=== PATIENT | female | born 1950 | race Caucasian/White ===

== ENCOUNTER 2022-03-11 21:58 | Inpatient (IN) ==
[2022-03-11] MEDS ORDERED: 0.9 % Sodium Chloride 1,000 ML IVC ONE (22:54)
[2022-03-11] MEDS ORDERED: Acetaminophen 325 MG TABLET PO ONE (22:54)
[2022-03-11] MEDS ORDERED: Iopamidol - 370 500 ML MLS IVP ONE (22:57)
[2022-03-11 23:11] LABS: VBG HCO3 19 mEq/L (21-27); VBG PCO2 27 mmHg (41-51); VBG PH 7.45 pH Units (7.32-7.42); VBG PO2 93 mmHg (25-50)
[2022-03-11 23:14] LABS: Hematocrit 39.1 % (35.3-44.9); Hemoglobin 13.4 g/dL (11.5-15.4); Mean Corpuscular HGB Conc 34.3 g/dL (31.6-35.5); Mean Corpuscular Hemoglobin 29.3 pg (28.0-33.3); Mean Corpuscular Volume 85.6 fL (83.0-100.0); Mean Platelet Volume 10.3 fL (9.4-12.4); Platelet Count 145 K/mcL (140-400); Red Blood Count 4.57 M/mcL (3.82-4.97); Red Cell Distribution Width 13.5 % (11.5-14.5); White Blood Count 20.1 K/mcL (4.3-11.1)
[2022-03-11 23:24] LABS: INR 1.3; Prothrombin Time 14.3 Seconds (9.4-12.1)
[2022-03-11 23:37] LABS: Albumin 3.4 g/dL (3.5-5.7); Bilirubin,Direct 0.4 mg/dL (0.0-0.2); Bilirubin,Indirect 0.7 mg/dL (0.0-1.0); Bilirubin,Total 1.1 mg/dL (0.3-1.0); Calcium 9.3 mg/dL (8.6-10.3); Globulin 3.5 g/dL (2.4-3.5); Potassium 3.4 mEq/L (3.5-5.1); Total Protein 6.9 g/dL (6.4-8.9)
[2022-03-11 23:43] LABS: Lymphocytes # 2.4 K/mcL (0.6-4.6); Monocytes # 1.6 K/mcL (0.0-1.3); Neutrophils # 16.1 K/mcL (1.6-8.9); Platelet Estimate Normal (Normal)
[2022-03-11 23:56] LABS: Troponin I 0.1 ng/mL (< 0.04)
[2022-03-12] MEDS ORDERED: Aspirin 325 MG TABLET PO ONE (00:11)
[2022-03-12 00:19] LABS: Bacteria,Urine Few per hpf (None-Few); Bilirubin,Urine Negative (Negative); Blood,Urine Large (Negative); Clarity,Urine Ex.Turbid (Clear); Color,Urine Light-Orange (Yellow); Glucose,Urine (UA) 150 mg/dL (Normal); Ketones,Urine 10 mg/dL (Negative); Leukocyte Esterase,Urine Negative (Negative); Mucus,Urine Few per lpf (None-Few); Nitrite,Urine Negative (Negative); Protein,Urine >=300 mg/dL (Neg-Trace); Specific Gravity,Urine 1.021 (1.010-1.025); Squamous Epithelial Cell,Urine Few per hpf (None-Few)
[2022-03-12 00:21] LABS: Adenovirus Not Detected (Not Detect); Bordetella Pertussis Not Detected (Not Detect); Chlamydophila pneumoniae Not Detected (Not Detect); Coronavirus 229E Not Detected (Not Detect); Coronavirus HKU1 Not Detected (Not Detect); Coronavirus NL63 Not Detected (Not Detect); Coronavirus OC43 Not Detected (Not Detect); Human Metapneumovirus Not Detected (Not Detect); Human Rhinovirus/Enterovirus Not Detected (Not Detect); Influenza A Subtype 2009 H1 Not Detected (Not Detect); Influenza B Not Detected (Not Detect); Mycoplasma pneumoniae Not Detected (Not Detect); Parainfluenza Virus 1 Not Detected (Not Detect); Parainfluenza Virus 2 Not Detected (Not Detect); Parainfluenza Virus 3 Not Detected (Not Detect); Parainfluenza Virus 4 Not Detected (Not Detect); Respiratory Syncytial Virus Not Detected (Not Detect); SARS-CoV-2 Not Detected (Not Detect)
[2022-03-12] MEDS ORDERED: cefTRIAXone 2,000 MG in 0.9 % Sodium Chloride Mini Bag 100 ML IVPB ONE (01:06)
[2022-03-12] MEDS ORDERED: 0.9 % Sodium Chloride 1,000 ML IV ONE (01:07)
[2022-03-12] MEDS ORDERED: Naloxone 0.4 MG/ML INJ IVP PRN ×2 (03:41→10:28)
[2022-03-12] MEDS ORDERED: Ondansetron 4 MG/2 ML VIAL IVP PRN (03:41)
[2022-03-12 05:50] LABS: Hematocrit 35.9 % (35.3-44.9); Hemoglobin 12.2 g/dL (11.5-15.4); Mean Corpuscular Hemoglobin 29.5 pg (28.0-33.3); Mean Corpuscular Volume 86.9 fL (83.0-100.0); Mean Platelet Volume 10.2 fL (9.4-12.4); Platelet Count 146 K/mcL (140-400); Red Blood Count 4.13 M/mcL (3.82-4.97); Red Cell Distribution Width 13.7 % (11.5-14.5); White Blood Count 20.1 K/mcL (4.3-11.1)
[2022-03-12 05:57] LABS: INR 1.2; Prothrombin Time 13.7 Seconds (9.4-12.1)
[2022-03-12] MEDS ORDERED: Dextrose Gel 15 GM/37.5 ML TUBE PO PRN ×2 (06:07)
[2022-03-12] MEDS ORDERED: D5% in Water 1,000 ML IVC PRN (06:07)
[2022-03-12] MEDS ORDERED: *HR* Dextrose 50 % in Water (Syg) 50 ML SYRINGE IVP PRN (06:07)
[2022-03-12 06:14] LABS: Alanine Aminotransferase 57 Units/L (7-52); Albumin 3.1 g/dL (3.5-5.7); Alkaline Phosphatase 91 Units/L (34-104); Aspartate Amino Transferase 199 Units/L (13-39); BUN/Creatinine Ratio 19 (6-26); Bilirubin,Direct 0.3 mg/dL (0.0-0.2); Bilirubin,Indirect 0.5 mg/dL (0.0-1.0); Bilirubin,Total 0.8 mg/dL (0.3-1.0); Blood Urea Nitrogen 34 mg/dL (8-23); Calcium 8.3 mg/dL (8.6-10.3); Carbon Dioxide 21 mEq/L (23-29); Chloride 103 mEq/L (98-107); Glucose 265 mg/dL (70-105); Lymphocytes # 0.8 K/mcL (0.6-4.6); Magnesium 1.5 mg/dL (1.6-2.6); Monocytes # 0.8 K/mcL (0.0-1.3); Neutrophils # 18.5 K/mcL (1.6-8.9); Osmolality,Calculated 295 (280-300); Platelet Estimate Normal (Normal); Potassium 3.5 mEq/L (3.5-5.1); Sodium 134 mEq/L (136-145); Total Protein 6.1 g/dL (6.4-8.9); eGFR For African Americans 33 (> 60); eGFR For Non-African Americans 27 (> 60)
[2022-03-12] MEDS ORDERED: 0.9 % Sodium Chloride 1,000 ML IVC SCH (06:15)
[2022-03-12 06:29] LABS: Thyroid Stimulating Hormone 1.648 mcIU/mL (0.340-5.600)
[2022-03-12] MEDS ORDERED: Magnesium Sulfate 1 GM/102 ML PIGGYBACK IVPB ONE (06:30)
[2022-03-12 06:34] LABS: Creatine Kinase > 20000 Units/L (30-223)
[2022-03-12] MEDS ORDERED: Piperacillin/Tazobactam 3.375 GM in 0.9 % Sodium Chloride Mini Bag 100 ML IVPB SCH (08:00)
[2022-03-12 08:10] LABS: Estimated Average Glucose 180 mg/dl; Hemoglobin A1C 7.9 %
[2022-03-12] MEDS: 0.9 % Sodium Chloride 1,000 ML IVC SCH ×4 (08:45→23:19)
[2022-03-12] MEDS: Insulin LISPRO 300 UNITS/3 ML VIAL SUBQ SCH ×3 (09:30→16:24)
[2022-03-12] MEDS: *HR* HYDROcodone/Acet 5/325 mg TABLET PO PRN ×2 (10:45→22:26)
[2022-03-12 12:01] LABS: Enterococcus faecalis by PCR Not Detected (Not Detect); Enterococcus faecium by PCR Not Detected (Not Detect); Staph epidermidis by PCR Not Detected (Not Detect); Staph lugdunensis by PCR Not Detected (Not Detect); Staphylococcus aureus by PCR DETECTED (Not Detect); Streptococcus by PCR Not Detected (Not Detect); mecA/C & MREJ (MRSA) Gene Not Detected (Not Detect)
[2022-03-12 12:02] LABS: A.calcoaceticus-baumannii cplx Not Detected (Not Detect); Bacteroides fragilis by PCR Not Detected (Not Detect); Candida albicans by PCR Not Detected (Not Detect); Candida auris by PCR Not Detected (Not Detect); Candida glabrata by PCR Not Detected (Not Detect); Candida krusei by PCR Not Detected (Not Detect); Candida parapsilosis by PCR Not Detected (Not Detect); Candida tropicalis by PCR Not Detected (Not Detect); Crypto. neoformans/gattii PCR Not Detected (Not Detect); Enterobacter cloacae Cmplx PCR Not Detected (Not Detect); Enterobacterales by PCR Not Detected (Not Detect); Escherichia coli by PCR Not Detected (Not Detect); Klebs. pneumoniae group by PCR Not Detected (Not Detect); Klebsiella aerogenes by PCR Not Detected (Not Detect); Klebsiella oxytoca by PCR Not Detected (Not Detect); Proteus by PCR Not Detected (Not Detect); Pseudomonas aeruginosa by PCR Not Detected (Not Detect); Salmonella species by PCR Not Detected (Not Detect); Serratia marcescens by PCR Not Detected (Not Detect); Stenotrophomonas maltophilia Not Detected (Not Detect); Streptococcus agalactiae(B)PCR Not Detected (Not Detect); Streptococcus pneumoniae PCR Not Detected (Not Detect); Streptococcus pyogenes (A) PCR Not Detected (Not Detect)
[2022-03-12 12:04] LABS: Calcium 8.3 mg/dL (8.6-10.3); Potassium 3.9 mEq/L (3.5-5.1); Troponin I 0.09 ng/mL (< 0.04)
[2022-03-12] MEDS ORDERED: Perflutren Lipid Microsphere 1.3 ML in 0.9 % Sodium Chloride 8.7 ML IVP PRN (13:51)
[2022-03-12] MEDS ORDERED: Vancomycin 1,750 MG in 0.9 % Sodium Chloride 250 ML IVPB SCH (14:00)
[2022-03-12] MEDS: *HR* OxyCODONE Immed Rel 5 MG TABLET PO PRN (14:48)
[2022-03-12] MEDS ORDERED: Vancomycin 1,750 MG/517.5 ML IV.SOLN IVPB ONE (15:00)
[2022-03-13] MEDS: *HR* OxyCODONE Immed Rel 5 MG TABLET PO PRN ×2 (01:43→22:36)
[2022-03-13] MEDS: CeFAZolin 2,000 MG/120 ML BAG IVPB SCH ×4 (02:25→15:39)
[2022-03-13] MEDS: 0.9 % Sodium Chloride 1,000 ML IVC SCH ×3 (04:12→20:00)
[2022-03-13] MEDS: *HR* HYDROcodone/Acet 5/325 mg TABLET PO PRN ×2 (05:19→15:36)
[2022-03-13] MEDS ORDERED: *HR* HYDROmorphone (PF) 1 MG/ML SYRINGE IVP ONE (05:38)
[2022-03-13 06:34] LABS: Hematocrit 35.7 % (35.3-44.9); Hemoglobin 11.8 g/dL (11.5-15.4); Mean Corpuscular HGB Conc 33.1 g/dL (31.6-35.5); Mean Corpuscular Hemoglobin 29.1 pg (28.0-33.3); Mean Corpuscular Volume 88.1 fL (83.0-100.0); Mean Platelet Volume 9.9 fL (9.4-12.4); Platelet Count 143 K/mcL (140-400); Red Blood Count 4.05 M/mcL (3.82-4.97); Red Cell Distribution Width 13.9 % (11.5-14.5); White Blood Count 14.9 K/mcL (4.3-11.1)
[2022-03-13 07:55] LABS: Lymphocytes # 1.2 K/mcL (0.6-4.6); Monocytes # 0.8 K/mcL (0.0-1.3); Platelet Estimate Normal (Normal)
[2022-03-13] MEDS: Insulin LISPRO 300 UNITS/3 ML VIAL SUBQ SCH ×3 (08:13→16:51)
[2022-03-13 09:31] LABS: Alanine Aminotransferase 67 Units/L (7-52); Alkaline Phosphatase 98 Units/L (34-104); Aspartate Amino Transferase 133 Units/L (13-39); BUN/Creatinine Ratio 20 (6-26); Bilirubin,Total 0.8 mg/dL (0.3-1.0); Blood Urea Nitrogen 41 mg/dL (8-23); C-Reactive Protein > 300 mg/L (Less than 10); Calcium 8.2 mg/dL (8.6-10.3); Carbon Dioxide 18 mEq/L (23-29); Chloride 104 mEq/L (98-107); Creatine Kinase 5220 Units/L (30-223); Globulin 3.1 g/dL (2.4-3.5); Glucose 215 mg/dL (70-105); Osmolality,Calculated 289 (280-300); Potassium 3.8 mEq/L (3.5-5.1); Sodium 131 mEq/L (136-145); Total Protein 6.1 g/dL (6.4-8.9); eGFR For African Americans 29 (> 60); eGFR For Non-African Americans 24 (> 60)
[2022-03-13] MEDS: Aspirin Enteric Coated 81 MG Tablet PO SCH (15:29)
[2022-03-13] MEDS: amLODIPine 5 MG TABLET PO SCH (15:29)
[2022-03-13] MEDS: Latanoprost 2.5 ML BOTTLE BOTH EYES SCH (19:56)
[2022-03-14] MEDS: 0.9 % Sodium Chloride 1,000 ML IVC SCH ×4 (00:34→19:45)
[2022-03-14] MEDS: *HR* HYDROcodone/Acet 5/325 mg TABLET PO PRN ×4 (01:01→23:32)
[2022-03-14 02:51] LABS: Basophils # 0.1 K/mcL (0.0-0.2); Basophils % 0.5 %; Eosinophils # 0.1 K/mcL (0.0-0.6); Eosinophils % 0.7 %; Hemoglobin 11.3 g/dL (11.5-15.4); Immature Granulocytes % 2.5 % (0-4); Lymphocytes # 1.8 K/mcL (0.6-4.6); Lymphocytes % 13.2 %; Mean Corpuscular HGB Conc 33.2 g/dL (31.6-35.5); Mean Corpuscular Hemoglobin 29.4 pg (28.0-33.3); Mean Corpuscular Volume 88.3 fL (83.0-100.0); Mean Platelet Volume 10.2 fL (9.4-12.4); Monocytes # 1.3 K/mcL (0.0-1.3); Monocytes % 9.6 %; Neutrophils # 10.2 K/mcL (1.6-8.9); Nucleated Red Blood Cells 0.1 /100 WBC (0); Platelet Count 164 K/mcL (140-400); Red Blood Count 3.85 M/mcL (3.82-4.97); Red Cell Distribution Width 14.1 % (11.5-14.5); Segmented Neutrophils % 73.5 %; White Blood Count 13.9 K/mcL (4.3-11.1)
[2022-03-14 03:14] LABS: Albumin 2.9 g/dL (3.5-5.7); Albumin/Globulin Ratio 0.9 (1.1-2.2); Bilirubin,Total 0.7 mg/dL (0.3-1.0); Calcium 8.5 mg/dL (8.6-10.3); Globulin 3.4 g/dL (2.4-3.5); Potassium 3.9 mEq/L (3.5-5.1); Total Protein 6.3 g/dL (6.4-8.9)
[2022-03-14] MEDS: CeFAZolin 2,000 MG/120 ML BAG IVPB SCH ×2 (04:33→17:17)
[2022-03-14] MEDS: Insulin LISPRO 300 UNITS/3 ML VIAL SUBQ SCH ×3 (07:57→17:10)
[2022-03-14] MEDS: amLODIPine 5 MG TABLET PO SCH (07:59)
[2022-03-14] MEDS: Aspirin Enteric Coated 81 MG Tablet PO SCH (07:59)
[2022-03-14] MEDS: *HR* OxyCODONE Immed Rel 5 MG TABLET PO PRN (19:45)
[2022-03-14] MEDS: Latanoprost 2.5 ML BOTTLE BOTH EYES SCH (19:45)
[2022-03-15] MEDS: *HR* OxyCODONE Immed Rel 5 MG TABLET PO PRN ×3 (01:47→20:12)
[2022-03-15] MEDS: Acetaminophen 325 MG TABLET PO PRN ×2 (01:47→20:12)
[2022-03-15 03:08] LABS: Eosinophils # 0.3 K/mcL (0.0-0.6); Hematocrit 36.1 % (35.3-44.9); Mean Corpuscular HGB Conc 33.2 g/dL (31.6-35.5); Mean Corpuscular Hemoglobin 29.1 pg (28.0-33.3); Mean Corpuscular Volume 87.4 fL (83.0-100.0); Platelet Count 196 K/mcL (140-400); Red Blood Count 4.13 M/mcL (3.82-4.97); White Blood Count 12.5 K/mcL (4.3-11.1)
[2022-03-15 03:22] LABS: Albumin 2.8 g/dL (3.5-5.7); Albumin/Globulin Ratio 0.9 (1.1-2.2); Bilirubin,Total 0.5 mg/dL (0.3-1.0); Calcium 8.6 mg/dL (8.6-10.3); Globulin 3.2 g/dL (2.4-3.5); Potassium 3.7 mEq/L (3.5-5.1)
[2022-03-15 03:36] LABS: Lymphocytes # 2.5 K/mcL (0.6-4.6); Monocytes # 0.3 K/mcL (0.0-1.3); Neutrophils # 9.5 K/mcL (1.6-8.9); Platelet Estimate Normal (Normal); Toxic Granulation Present (Not Present)
[2022-03-15] MEDS: CeFAZolin 2,000 MG/120 ML BAG IVPB SCH ×2 (03:38→17:18)
[2022-03-15] MEDS: 0.9 % Sodium Chloride 1,000 ML IVC SCH ×2 (03:38→12:53)
[2022-03-15] MEDS: *HR* HYDROcodone/Acet 5/325 mg TABLET PO PRN ×2 (05:54→22:23)
[2022-03-15] MEDS: amLODIPine 5 MG TABLET PO SCH ×2 (08:37→12:40)
[2022-03-15] MEDS: Insulin LISPRO 300 UNITS/3 ML VIAL SUBQ SCH ×3 (08:37→17:11)
[2022-03-15] MEDS: Aspirin Enteric Coated 81 MG Tablet PO SCH (08:37)
[2022-03-15] MEDS: lisinopriL 20 MG TABLET PO SCH (12:40)
[2022-03-15] MEDS: hydroCHLOROthiazide 25 MG TABLET PO SCH (12:40)
[2022-03-15] MEDS: carvediloL 6.25 MG TABLET PO SCH (17:18)
[2022-03-15] MEDS: Latanoprost 2.5 ML BOTTLE BOTH EYES SCH (20:12)
[2022-03-15 22:24] LABS: Amphetamine Screen,Urine Negative ng/mL (Cutoff=1000); Barbiturate Screen,Urine Negative ng/mL (Cutoff=200); Benzodiazepines Screen,Urine Negative ng/mL (Cutoff=200); Cannabinoid Screen,Urine Negative ng/mL (Cutoff = 50); Cocaine Screen,Urine Negative ng/mL (Cutoff= 300); Opiate Screen,Urine Positive ng/mL (Cutoff=300); Phencyclidine Screen,Urine Negative ng/mL (Cutoff=25)
[2022-03-15] MEDS: Levalbuterol Neb 1.25 MG/3 ML IH SCH (22:35)
[2022-03-16] MEDS: 0.9 % Sodium Chloride 1,000 ML IVC SCH ×2 (00:16→13:33)
[2022-03-16] MEDS: *HR* OxyCODONE Immed Rel 5 MG TABLET PO PRN ×4 (02:30→23:10)
[2022-03-16 02:37] LABS: Eosinophils # 0.3 K/mcL (0.0-0.6); Hematocrit 34.7 % (35.3-44.9); Hemoglobin 11.5 g/dL (11.5-15.4); Mean Corpuscular HGB Conc 33.1 g/dL (31.6-35.5); Mean Corpuscular Hemoglobin 29.1 pg (28.0-33.3); Mean Corpuscular Volume 87.8 fL (83.0-100.0); Mean Platelet Volume 9.8 fL (9.4-12.4); Platelet Count 208 K/mcL (140-400); Red Blood Count 3.95 M/mcL (3.82-4.97); Red Cell Distribution Width 14.2 % (11.5-14.5)
[2022-03-16 02:55] LABS: Albumin 2.6 g/dL (3.5-5.7); Albumin/Globulin Ratio 0.9 (1.1-2.2); Bilirubin,Total 0.5 mg/dL (0.3-1.0); Calcium 8.8 mg/dL (8.6-10.3); Potassium 3.5 mEq/L (3.5-5.1); Total Protein 5.6 g/dL (6.4-8.9)
[2022-03-16 03:06] LABS: Lymphocytes # 2.4 K/mcL (0.6-4.6); Monocytes # 1.5 K/mcL (0.0-1.3); Neutrophils # 9.9 K/mcL (1.6-8.9); Platelet Estimate Normal (Normal); Toxic Granulation Present (Not Present)
[2022-03-16] MEDS: Levalbuterol Neb 1.25 MG/3 ML IH SCH ×2 (04:00→11:09)
[2022-03-16] MEDS: CeFAZolin 2,000 MG/120 ML BAG IVPB SCH ×2 (04:55→16:49)
[2022-03-16] MEDS: Acetaminophen 325 MG TABLET PO PRN (04:56)
[2022-03-16] MEDS: *HR* HYDROcodone/Acet 5/325 mg TABLET PO PRN ×2 (04:56→13:31)
[2022-03-16] MEDS: carvediloL 6.25 MG TABLET PO SCH ×2 (07:33→16:51)
[2022-03-16] MEDS: amLODIPine 5 MG TABLET PO SCH (07:33)
[2022-03-16] MEDS: Aspirin Enteric Coated 81 MG Tablet PO SCH (07:33)
[2022-03-16] MEDS: lisinopriL 20 MG TABLET PO SCH (07:34)
[2022-03-16] MEDS: hydroCHLOROthiazide 25 MG TABLET PO SCH (07:34)
[2022-03-16] MEDS: Insulin LISPRO 300 UNITS/3 ML VIAL SUBQ SCH ×3 (07:35→16:51)
[2022-03-16] MEDS ORDERED: Ipratropium/Albuterol Neb 3 ML IH PRN (14:26)
[2022-03-16] MEDS ORDERED: Levalbuterol Neb 1.25 MG/3 ML IH PRN (15:49)
[2022-03-16] MEDS: Latanoprost 2.5 ML BOTTLE BOTH EYES SCH (20:21)
[2022-03-17] MEDS: 0.9 % Sodium Chloride 1,000 ML IVC SCH ×3 (00:42→14:07)
[2022-03-17] MEDS: *HR* HYDROcodone/Acet 5/325 mg TABLET PO PRN ×2 (00:45→14:06)
[2022-03-17 03:12] LABS: Hematocrit 33.4 % (35.3-44.9); Hemoglobin 11.5 g/dL (11.5-15.4); Mean Corpuscular HGB Conc 34.4 g/dL (31.6-35.5); Mean Corpuscular Hemoglobin 29.3 pg (28.0-33.3); Mean Corpuscular Volume 85.2 fL (83.0-100.0); Mean Platelet Volume 9.2 fL (9.4-12.4); Platelet Count 274 K/mcL (140-400); Red Blood Count 3.92 M/mcL (3.82-4.97); Red Cell Distribution Width 14.1 % (11.5-14.5); White Blood Count 18.7 K/mcL (4.3-11.1)
[2022-03-17 03:32] LABS: Alanine Aminotransferase 8 Units/L (7-52); Albumin 2.6 g/dL (3.5-5.7); Albumin/Globulin Ratio 0.8 (1.1-2.2); Alkaline Phosphatase 101 Units/L (34-104); Aspartate Amino Transferase 18 Units/L (13-39); BUN/Creatinine Ratio 32 (6-26); Bilirubin,Total 0.5 mg/dL (0.3-1.0); Blood Urea Nitrogen 32 mg/dL (8-23); Carbon Dioxide 22 mEq/L (23-29); Chloride 102 mEq/L (98-107); Creatine Kinase 119 Units/L (30-223); Globulin 3.2 g/dL (2.4-3.5); Glucose 155 mg/dL (70-105); Magnesium 1.2 mg/dL (1.6-2.6); Osmolality,Calculated 288 (280-300); Phosphorous 2.8 mg/dL (2.7-4.5); Potassium 3.1 mEq/L (3.5-5.1); Sodium 134 mEq/L (136-145); Total Protein 5.8 g/dL (6.4-8.9); eGFR For African Americans > 60 (> 60); eGFR For Non-African Americans 54 (> 60)
[2022-03-17 03:39] LABS: Lymphocytes # 2.2 K/mcL (0.6-4.6); Monocytes # 1.1 K/mcL (0.0-1.3); Neutrophils # 15.3 K/mcL (1.6-8.9); Platelet Estimate Normal (Normal)
[2022-03-17] MEDS: CeFAZolin 2,000 MG/120 ML BAG IVPB SCH ×3 (04:27→22:23)
[2022-03-17] MEDS: *HR* OxyCODONE Immed Rel 5 MG TABLET PO PRN ×2 (05:15→19:52)
[2022-03-17] MEDS: Acetaminophen 325 MG TABLET PO PRN (06:34)
[2022-03-17] MEDS: hydrALAZINE 10 MG TABLET PO PRN (06:34)
[2022-03-17] MEDS: carvediloL 6.25 MG TABLET PO SCH ×2 (08:11→17:36)
[2022-03-17] MEDS: hydroCHLOROthiazide 25 MG TABLET PO SCH (08:11)
[2022-03-17] MEDS: lisinopriL 20 MG TABLET PO SCH (08:11)
[2022-03-17] MEDS: Aspirin Enteric Coated 81 MG Tablet PO SCH (08:11)
[2022-03-17] MEDS: Insulin LISPRO 300 UNITS/3 ML VIAL SUBQ SCH ×3 (08:11→16:37)
[2022-03-17] MEDS: amLODIPine 5 MG TABLET PO SCH (08:27)
[2022-03-17] MEDS: Azithromycin 500 MG in 0.9 % Sodium Chloride 250 ML IVPB SCH (10:26)
[2022-03-17 11:03] LABS: Bilirubin,Urine Negative (Negative); Blood,Urine Negative (Negative); Clarity,Urine Clear (Clear); Color,Urine Colorless (Yellow); Glucose,Urine (UA) 300 mg/dL (Normal); Ketones,Urine Negative (Negative); Leukocyte Esterase,Urine Negative (Negative); Mucus,Urine Few per lpf (None-Few); Nitrite,Urine Negative (Negative); Protein,Urine Negative (Neg-Trace); RBC,Urine 0-3 per hpf (0-3); Specific Gravity,Urine 1.012 (1.010-1.025); Squamous Epithelial Cell,Urine Few per hpf (None-Few); Urobilinogen,Urine Normal (Normal); WBC,Urine 0-3 per hpf (0-3)
[2022-03-17] MEDS: *HR* Heparin 5,000 UNIT/ML VIAL SQ SCH ×2 (14:06→22:23)
[2022-03-17] MEDS: Latanoprost 2.5 ML BOTTLE BOTH EYES SCH (19:53)
[2022-03-18] MEDS: *HR* OxyCODONE Immed Rel 5 MG TABLET PO PRN (01:56)
[2022-03-18 03:13] LABS: Hematocrit 30.4 % (35.3-44.9); Hemoglobin 10.4 g/dL (11.5-15.4); Mean Corpuscular HGB Conc 34.2 g/dL (31.6-35.5); Mean Corpuscular Volume 84.7 fL (83.0-100.0); Mean Platelet Volume 9.1 fL (9.4-12.4); Platelet Count 309 K/mcL (140-400); Red Blood Count 3.59 M/mcL (3.82-4.97); Red Cell Distribution Width 13.7 % (11.5-14.5)
[2022-03-18 03:34] LABS: Alanine Aminotransferase 7 Units/L (7-52); Albumin 2.6 g/dL (3.5-5.7); Albumin/Globulin Ratio 0.8 (1.1-2.2); Alkaline Phosphatase 93 Units/L (34-104); Aspartate Amino Transferase 15 Units/L (13-39); BUN/Creatinine Ratio 29 (6-26); Bilirubin,Total 0.4 mg/dL (0.3-1.0); Blood Urea Nitrogen 23 mg/dL (8-23); Calcium 8.6 mg/dL (8.6-10.3); Carbon Dioxide 25 mEq/L (23-29); Chloride 99 mEq/L (98-107); Globulin 3.2 g/dL (2.4-3.5); Glucose 138 mg/dL (70-105); Osmolality,Calculated 280 (280-300); Potassium 2.9 mEq/L (3.5-5.1); Sodium 132 mEq/L (136-145); Total Protein 5.8 g/dL (6.4-8.9); eGFR For African Americans > 60 (> 60); eGFR For Non-African Americans > 60 (> 60)
[2022-03-18 05:00] LABS: Eosinophils # 0.4 K/mcL (0.0-0.6); Lymphocytes # 3.2 K/mcL (0.6-4.6)
[2022-03-18 05:02] LABS: Microcytosis Present (Not Present); Platelet Estimate Normal (Normal)
[2022-03-18] MEDS: 0.9 % Sodium Chloride 1,000 ML IVC SCH ×3 (05:09→23:24)
[2022-03-18] MEDS: *HR* Heparin 5,000 UNIT/ML VIAL SQ SCH ×4 (05:10→21:11)
[2022-03-18] MEDS: CeFAZolin 2,000 MG/120 ML BAG IVPB SCH ×3 (05:53→21:13)
[2022-03-18] MEDS: Insulin LISPRO 300 UNITS/3 ML VIAL SUBQ SCH ×4 (07:30→19:36)
[2022-03-18] MEDS ORDERED: Lidocaine Viscous Oral Soln 15 ML SOLUTION MM PRN (10:39)
[2022-03-18] MEDS ORDERED: 0.9 % Sodium Chloride 500 ML IVC ONE (10:40)
[2022-03-18] MEDS: *HR* Midazolam HCl 5 MG/5 ML VIAL IVP PRN ×3 (11:20→11:35)
[2022-03-18] MEDS: *HR* FentaNYL (PF) 100 MCG/2 ML VIAL IVP PRN ×3 (11:20→11:35)
[2022-03-18] MEDS ORDERED: *HR* Midazolam HCl 5 MG/5 ML VIAL IVP ONE (11:34)
[2022-03-18] MEDS ORDERED: *HR* Propofol 200 MG/20 ML VIAL IVP ONE ×2 (11:34→11:42)
[2022-03-18] MEDS ORDERED: *HR* Succinylcholine 200 MG/10 ML VIAL IVP ONE (11:34)
[2022-03-18] MEDS ORDERED: Lidocaine -MPF 2% 5 ML VIAL SQ ONE (11:34)
[2022-03-18] MEDS ORDERED: POTASSIUM CHLORIDE IVPB ONE (11:57)
[2022-03-18] MEDS ORDERED: Artificial Tears SOLN 15 ML BOTTLE BOTH EYES PRN (12:14)
[2022-03-18] MEDS: FentaNYL (PF) 1,000 MCG/100 ML IV.SOLN IVC SCH ×2 (12:15→18:32)
[2022-03-18 12:35] LABS: VBG Ionized Calcium 1.09 mmol/L (1.15-1.35)
[2022-03-18 12:37] LABS: Mean Corpuscular HGB Conc 33.4 g/dL (31.6-35.5); Mean Corpuscular Hemoglobin 29.3 pg (28.0-33.3); Mean Corpuscular Volume 87.6 fL (83.0-100.0); Platelet Count 335 K/mcL (140-400); Red Blood Count 4.34 M/mcL (3.82-4.97); Red Cell Distribution Width 13.9 % (11.5-14.5); White Blood Count 20.1 K/mcL (4.3-11.1)
[2022-03-18 12:50] LABS: Hemoglobin 12.7 g/dL (11.5-15.4); INR 1.3; Prothrombin Time 14.9 Seconds (9.4-12.1)
[2022-03-18 12:53] LABS: Activated Partial Thrombo Time 26.3 Seconds (26.0-36.0)
[2022-03-18 13:10] LABS: Alanine Aminotransferase 8 Units/L (7-52); Albumin 2.9 g/dL (3.5-5.7); Albumin/Globulin Ratio 0.8 (1.1-2.2); Alkaline Phosphatase 101 Units/L (34-104); Aspartate Amino Transferase 24 Units/L (13-39); BUN/Creatinine Ratio 26 (6-26); Bilirubin,Direct 0.1 mg/dL (0.0-0.2); Bilirubin,Indirect 0.4 mg/dL (0.0-1.0); Bilirubin,Total 0.5 mg/dL (0.3-1.0); Blood Urea Nitrogen 19 mg/dL (8-23); Calcium 8.7 mg/dL (8.6-10.3); Carbon Dioxide 24 mEq/L (23-29); Chloride 100 mEq/L (98-107); Globulin 3.5 g/dL (2.4-3.5); Glucose 182 mg/dL (70-105); Magnesium 1.3 mg/dL (1.6-2.6); Osmolality,Calculated 285 (280-300); Phosphorous 3.4 mg/dL (2.7-4.5); Potassium 3.4 mEq/L (3.5-5.1); Sodium 134 mEq/L (136-145); Total Protein 6.4 g/dL (6.4-8.9); eGFR For African Americans > 60 (> 60); eGFR For Non-African Americans > 60 (> 60)
[2022-03-18] MEDS: Aspirin Enteric Coated 81 MG Tablet PO SCH (13:33)
[2022-03-18] MEDS: carvediloL 6.25 MG TABLET PO SCH ×2 (13:33→17:00)
[2022-03-18] MEDS: hydroCHLOROthiazide 25 MG TABLET PO SCH (13:34)
[2022-03-18] MEDS: amLODIPine 5 MG TABLET PO SCH (13:34)
[2022-03-18] MEDS: lisinopriL 20 MG TABLET PO SCH (13:34)
[2022-03-18] MEDS: Magnesium Oxide 400 MG TABLET PO SCH (13:34)
[2022-03-18] MEDS: Azithromycin 500 MG in 0.9 % Sodium Chloride 250 ML IVPB SCH (13:35)
[2022-03-18] MEDS ORDERED: Iopamidol - 370 500 ML MLS IVP ONE (13:59)
[2022-03-18 14:08] LABS: Lymphocytes # 2.4 K/mcL (0.6-4.6); Monocytes # 0.6 K/mcL (0.0-1.3); Neutrophils # 15.7 K/mcL (1.6-8.9); Platelet Estimate Normal (Normal); Toxic Granulation Present (Not Present)
[2022-03-18] MEDS: Pantoprazole 40 MG VIAL IVP SCH (14:11)
[2022-03-18 16:38] LABS: ABG Base Excess 2 mEq/L (-2 to 3); ABG HCO3 27 mEq/L (21-27); ABG Oxygen Saturation 100 % (95-98); ABG PCO2 41 mmHg (35-45); ABG PH 7.42 pH Units (7.32-7.45); ABG PO2 465 mmHg (85-104); ABG TCO2 28 mEq/L (20-26); Blood Gas Modality ASSIST CONTROL; Blood Gas VT 450 cc
[2022-03-18] MEDS: Artificial Tears SOLN 15 ML BOTTLE BOTH EYES SCH ×3 (17:08→23:50)
[2022-03-18] MEDS: Fluconazole 400 MG/200 ML 400 MG/200 ML BAG IVPB SCH (17:08)
[2022-03-18] MEDS: Chlorhexidine Rinse 15 ML MOUTHWASH MM SCH (19:34)
[2022-03-18] MEDS: MetroNIDAZOLE 500 MG/100 ML 500 MG/100 ML BAG IVPB SCH (19:34)
[2022-03-18] MEDS: Latanoprost 2.5 ML BOTTLE BOTH EYES SCH (22:18)
[2022-03-19] MEDS: MetroNIDAZOLE 500 MG/100 ML 500 MG/100 ML BAG IVPB SCH ×3 (03:16→18:08)
[2022-03-19] MEDS: Artificial Tears SOLN 15 ML BOTTLE BOTH EYES SCH ×2 (03:17→07:52)
[2022-03-19] MEDS: Insulin LISPRO 300 UNITS/3 ML VIAL SUBQ SCH ×7 (03:18→23:41)
[2022-03-19 03:43] LABS: Hematocrit 31.8 % (35.3-44.9); Mean Corpuscular HGB Conc 33.6 g/dL (31.6-35.5); Mean Corpuscular Hemoglobin 29.3 pg (28.0-33.3); Mean Corpuscular Volume 87.1 fL (83.0-100.0); Mean Platelet Volume 9.1 fL (9.4-12.4); Platelet Count 314 K/mcL (140-400); Red Blood Count 3.65 M/mcL (3.82-4.97); Red Cell Distribution Width 14.2 % (11.5-14.5)
[2022-03-19 03:44] LABS: VBG Ionized Calcium 1.18 mmol/L (1.15-1.35)
[2022-03-19 03:49] LABS: Hemoglobin 10.7 g/dL (11.5-15.4)
[2022-03-19 03:56] LABS: ABG Base Excess 1 mEq/L (-2 to 3); ABG HCO3 25 mEq/L (21-27); ABG Oxygen Saturation 98 % (95-98); ABG PCO2 36 mmHg (35-45); ABG PH 7.44 pH Units (7.32-7.45); ABG PO2 106 mmHg (85-104); ABG TCO2 26 mEq/L (20-26); Blood Gas VT 450 cc
[2022-03-19 04:16] LABS: Eosinophils # 0.4 K/mcL (0.0-0.6); Monocytes # 0.4 K/mcL (0.0-1.3); Neutrophils # 17.2 K/mcL (1.6-8.9); Platelet Estimate Normal (Normal); Toxic Granulation Present (Not Present)
[2022-03-19 04:21] LABS: Alanine Aminotransferase 6 Units/L (7-52); Albumin 2.4 g/dL (3.5-5.7); Albumin/Globulin Ratio 0.8 (1.1-2.2); Alkaline Phosphatase 86 Units/L (34-104); Aspartate Amino Transferase 13 Units/L (13-39); BUN/Creatinine Ratio 33 (6-26); Bilirubin,Indirect 0.3 mg/dL (0.0-1.0); Bilirubin,Total 0.3 mg/dL (0.3-1.0); Blood Urea Nitrogen 26 mg/dL (8-23); Calcium 8.5 mg/dL (8.6-10.3); Carbon Dioxide 28 mEq/L (23-29); Chloride 104 mEq/L (98-107); Globulin 3.1 g/dL (2.4-3.5); Glucose 143 mg/dL (70-105); Magnesium 1.8 mg/dL (1.6-2.6); Osmolality,Calculated 293 (280-300); Phosphorous 3.3 mg/dL (2.7-4.5); Potassium 3.2 mEq/L (3.5-5.1); Sodium 138 mEq/L (136-145); Total Protein 5.5 g/dL (6.4-8.9); eGFR For African Americans > 60 (> 60); eGFR For Non-African Americans > 60 (> 60)
[2022-03-19] MEDS: *HR* Heparin 5,000 UNIT/ML VIAL SQ SCH ×3 (05:17→20:31)
[2022-03-19] MEDS: CeFAZolin 2,000 MG/120 ML BAG IVPB SCH ×3 (05:17→22:06)
[2022-03-19] MEDS: 0.9 % Sodium Chloride 1,000 ML IVC SCH (05:28)
[2022-03-19] MEDS: Fluconazole 400 MG/200 ML 400 MG/200 ML BAG IVPB SCH (07:45)
[2022-03-19] MEDS: Chlorhexidine Rinse 15 ML MOUTHWASH MM SCH ×2 (07:45→20:31)
[2022-03-19] MEDS: Pantoprazole 40 MG VIAL IVP SCH (07:48)
[2022-03-19] MEDS: carvediloL 6.25 MG TABLET PO SCH (07:53)
[2022-03-19] MEDS: Aspirin Enteric Coated 81 MG Tablet PO SCH (07:53)
[2022-03-19] MEDS: hydroCHLOROthiazide 25 MG TABLET PO SCH (07:54)
[2022-03-19] MEDS: Magnesium Oxide 400 MG TABLET PO SCH (07:55)
[2022-03-19] MEDS: amLODIPine 5 MG TABLET PO SCH (07:55)
[2022-03-19] MEDS: lisinopriL 20 MG TABLET PO SCH (07:55)
[2022-03-19] MEDS: Azithromycin 500 MG in 0.9 % Sodium Chloride 250 ML IVPB SCH (09:01)
[2022-03-19] MEDS: *HR* OxyCODONE Oral Soln 5 MG/5 ML UD.LIQ PO PRN ×2 (16:02→22:06)
[2022-03-19] MEDS ORDERED: MetroNIDAZOLE 500 MG/100 ML 500 MG/100 ML BAG IVPB SCH (16:18)
[2022-03-19] MEDS ORDERED: carvediloL 6.25 MG TABLET PO SCH (17:00)
[2022-03-19] MEDS: Latanoprost 2.5 ML BOTTLE BOTH EYES SCH (22:13)
[2022-03-19] MEDS ORDERED: amLODIPine 5 MG TABLET PO ONE (22:24)
[2022-03-20] MEDS ORDERED: Ketorolac 30 MG/ML VIAL IVP PRN (00:44)
[2022-03-20] MEDS: hydrALAZINE 10 MG TABLET PO PRN ×2 (00:50→20:10)
[2022-03-20] MEDS: MetroNIDAZOLE 500 MG/100 ML 500 MG/100 ML BAG IVPB SCH ×3 (03:16→18:36)
[2022-03-20] MEDS: *HR* OxyCODONE Oral Soln 5 MG/5 ML UD.LIQ PO PRN ×3 (04:08→18:36)
[2022-03-20] MEDS: Insulin LISPRO 300 UNITS/3 ML VIAL SUBQ SCH ×5 (04:18→21:22)
[2022-03-20] MEDS: CeFAZolin 2,000 MG/120 ML BAG IVPB SCH ×3 (05:13→23:45)
[2022-03-20] MEDS: *HR* Heparin 5,000 UNIT/ML VIAL SQ SCH ×3 (05:13→20:09)
[2022-03-20 06:09] LABS: Alanine Aminotransferase 8 Units/L (7-52); Albumin 2.6 g/dL (3.5-5.7); Albumin/Globulin Ratio 0.8 (1.1-2.2); Alkaline Phosphatase 98 Units/L (34-104); Aspartate Amino Transferase 20 Units/L (13-39); BUN/Creatinine Ratio 26 (6-26); Bilirubin,Direct 0.1 mg/dL (0.0-0.2); Bilirubin,Indirect 0.3 mg/dL (0.0-1.0); Bilirubin,Total 0.4 mg/dL (0.3-1.0); Blood Urea Nitrogen 16 mg/dL (8-23); Calcium 8.6 mg/dL (8.6-10.3); Carbon Dioxide 30 mEq/L (23-29); Chloride 103 mEq/L (98-107); Globulin 3.3 g/dL (2.4-3.5); Glucose 137 mg/dL (70-105); Magnesium 1.5 mg/dL (1.6-2.6); Osmolality,Calculated 291 (280-300); Phosphorous 2.7 mg/dL (2.7-4.5); Potassium 3.1 mEq/L (3.5-5.1); Sodium 139 mEq/L (136-145); Total Protein 5.9 g/dL (6.4-8.9); eGFR For African Americans > 60 (> 60); eGFR For Non-African Americans > 60 (> 60)
[2022-03-20] MEDS ORDERED: Potassium Chloride Elixir 20 MEQ/15 ML UDC PO ONE (06:19)
[2022-03-20 06:27] LABS: VBG Ionized Calcium 1.12 mmol/L (1.15-1.35)
[2022-03-20 07:09] LABS: Hematocrit 34.4 % (35.3-44.9); Hemoglobin 11.4 g/dL (11.5-15.4); Mean Corpuscular HGB Conc 33.1 g/dL (31.6-35.5); Mean Corpuscular Hemoglobin 29.2 pg (28.0-33.3); Mean Platelet Volume 9.3 fL (9.4-12.4); Platelet Count 446 K/mcL (140-400); Red Blood Count 3.91 M/mcL (3.82-4.97); Red Cell Distribution Width 14.3 % (11.5-14.5); White Blood Count 20.5 K/mcL (4.3-11.1)
[2022-03-20] MEDS: Chlorhexidine Rinse 15 ML MOUTHWASH MM SCH ×2 (08:28→20:11)
[2022-03-20] MEDS: Pantoprazole 40 MG VIAL IVP SCH (08:30)
[2022-03-20] MEDS: Azithromycin 500 MG in 0.9 % Sodium Chloride 250 ML IVPB SCH (08:30)
[2022-03-20] MEDS: Fluconazole 400 MG/200 ML 400 MG/200 ML BAG IVPB SCH (08:32)
[2022-03-20 08:44] LABS: Lymphocytes # 1.4 K/mcL (0.6-4.6); Monocytes # 1.2 K/mcL (0.0-1.3); Neutrophils # 17.6 K/mcL (1.6-8.9); Smudge Cells Present (Not Present); Toxic Granulation Present (Not Present)
[2022-03-20] MEDS: Latanoprost 2.5 ML BOTTLE BOTH EYES SCH (20:10)
[2022-03-20] MEDS ORDERED: *HR* Labetalol 20 MG/4 ML SYRINGE IVP ONE ×2 (22:34→23:36)
[2022-03-21] MEDS: Insulin LISPRO 300 UNITS/3 ML VIAL SUBQ SCH ×5 (01:00→17:34)
[2022-03-21] MEDS: hydrALAZINE 10 MG TABLET PO PRN (03:34)
[2022-03-21] MEDS: MetroNIDAZOLE 500 MG/100 ML 500 MG/100 ML BAG IVPB SCH ×2 (03:34→11:13)
[2022-03-21] MEDS: *HR* OxyCODONE Oral Soln 5 MG/5 ML UD.LIQ PO PRN ×3 (03:43→21:47)
[2022-03-21 04:55] LABS: Basophils # 0.1 K/mcL (0.0-0.2); Basophils % 0.4 %; Eosinophils # 0.1 K/mcL (0.0-0.6); Eosinophils % 0.7 %; Hematocrit 32.3 % (35.3-44.9); Hemoglobin 10.8 g/dL (11.5-15.4); Immature Granulocytes % 3.8 % (0-4); Lymphocytes # 2.4 K/mcL (0.6-4.6); Lymphocytes % 14.3 %; Mean Corpuscular HGB Conc 33.4 g/dL (31.6-35.5); Mean Corpuscular Hemoglobin 29.3 pg (28.0-33.3); Mean Corpuscular Volume 87.5 fL (83.0-100.0); Mean Platelet Volume 8.8 fL (9.4-12.4); Monocytes # 1.2 K/mcL (0.0-1.3); Monocytes % 7.1 %; Neutrophils # 12.5 K/mcL (1.6-8.9); Platelet Count 411 K/mcL (140-400); Red Blood Count 3.69 M/mcL (3.82-4.97); Red Cell Distribution Width 14.1 % (11.5-14.5); Segmented Neutrophils % 73.7 %
[2022-03-21 05:04] LABS: VBG Ionized Calcium 1.15 mmol/L (1.15-1.35)
[2022-03-21 05:11] LABS: Alanine Aminotransferase 8 Units/L (7-52); Albumin 2.5 g/dL (3.5-5.7); Albumin/Globulin Ratio 0.8 (1.1-2.2); Alkaline Phosphatase 90 Units/L (34-104); Aspartate Amino Transferase 15 Units/L (13-39); BUN/Creatinine Ratio 20 (6-26); Bilirubin,Direct 0.1 mg/dL (0.0-0.2); Bilirubin,Indirect 0.3 mg/dL (0.0-1.0); Bilirubin,Total 0.4 mg/dL (0.3-1.0); Blood Urea Nitrogen 11 mg/dL (8-23); Calcium 8.4 mg/dL (8.6-10.3); Carbon Dioxide 29 mEq/L (23-29); Chloride 98 mEq/L (98-107); Globulin 3.2 g/dL (2.4-3.5); Glucose 156 mg/dL (70-105); Magnesium 1.3 mg/dL (1.6-2.6); Osmolality,Calculated 281 (280-300); Phosphorous 2.9 mg/dL (2.7-4.5); Sodium 134 mEq/L (136-145); Total Protein 5.7 g/dL (6.4-8.9); eGFR For African Americans > 60 (> 60); eGFR For Non-African Americans > 60 (> 60)
[2022-03-21] MEDS ORDERED: *HR* Labetalol 20 MG/4 ML SYRINGE IVP ONE (05:15)
[2022-03-21] MEDS: lisinopriL 20 MG TABLET PO SCH (05:34)
[2022-03-21] MEDS: *HR* Heparin 5,000 UNIT/ML VIAL SQ SCH ×3 (05:35→20:12)
[2022-03-21] MEDS: CeFAZolin 2,000 MG/120 ML BAG IVPB SCH ×3 (05:35→21:47)
[2022-03-21] MEDS ORDERED: Potassium Chloride Elixir 20 MEQ/15 ML UDC PO ONE (08:33)
[2022-03-21] MEDS: amLODIPine 5 MG TABLET PO SCH (09:14)
[2022-03-21] MEDS: Azithromycin 500 MG in 0.9 % Sodium Chloride 250 ML IVPB SCH (09:14)
[2022-03-21] MEDS: Chlorhexidine Rinse 15 ML MOUTHWASH MM SCH (09:15)
[2022-03-21] MEDS: Pantoprazole 40 MG VIAL IVP SCH (09:16)
[2022-03-21] MEDS: Fluconazole 400 MG/200 ML 400 MG/200 ML BAG IVPB SCH (09:19)
[2022-03-21] MEDS: metroNIDAZOLE 500 MG TABLET PO SCH (20:12)
[2022-03-21] MEDS: Latanoprost 2.5 ML BOTTLE BOTH EYES SCH (20:13)
[2022-03-22 04:02] LABS: VBG Ionized Calcium 1.21 mmol/L (1.15-1.35)
[2022-03-22 04:13] LABS: Basophils # 0.1 K/mcL (0.0-0.2); Basophils % 0.6 %; Eosinophils # 0.1 K/mcL (0.0-0.6); Eosinophils % 1.1 %; Hematocrit 26.2 % (35.3-44.9); Immature Granulocytes % 3.1 % (0-4); Lymphocytes # 2.1 K/mcL (0.6-4.6); Lymphocytes % 17.2 %; Mean Corpuscular HGB Conc 32.8 g/dL (31.6-35.5); Mean Corpuscular Hemoglobin 29.4 pg (28.0-33.3); Mean Corpuscular Volume 89.4 fL (83.0-100.0); Mean Platelet Volume 8.6 fL (9.4-12.4); Monocytes % 8.2 %; Neutrophils # 8.7 K/mcL (1.6-8.9); Platelet Count 307 K/mcL (140-400); Red Blood Count 2.93 M/mcL (3.82-4.97); Red Cell Distribution Width 14.1 % (11.5-14.5); Segmented Neutrophils % 69.8 %; White Blood Count 12.4 K/mcL (4.3-11.1)
[2022-03-22 04:18] LABS: Hemoglobin 8.6 g/dL (11.5-15.4)
[2022-03-22 04:23] LABS: Alanine Aminotransferase 6 Units/L (7-52); Albumin 2.3 g/dL (3.5-5.7); Albumin/Globulin Ratio 0.7 (1.1-2.2); Alkaline Phosphatase 84 Units/L (34-104); Aspartate Amino Transferase 11 Units/L (13-39); BUN/Creatinine Ratio 17 (6-26); Bilirubin,Direct 0.1 mg/dL (0.0-0.2); Bilirubin,Indirect 0.3 mg/dL (0.0-1.0); Bilirubin,Total 0.4 mg/dL (0.3-1.0); Blood Urea Nitrogen 10 mg/dL (8-23); Calcium 8.5 mg/dL (8.6-10.3); Carbon Dioxide 31 mEq/L (23-29); Chloride 99 mEq/L (98-107); Globulin 3.3 g/dL (2.4-3.5); Glucose 144 mg/dL (70-105); Magnesium 1.6 mg/dL (1.6-2.6); Osmolality,Calculated 280 (280-300); Phosphorous 2.5 mg/dL (2.7-4.5); Potassium 3.7 mEq/L (3.5-5.1); Sodium 134 mEq/L (136-145); Total Protein 5.6 g/dL (6.4-8.9); eGFR For African Americans > 60 (> 60); eGFR For Non-African Americans > 60 (> 60)
[2022-03-22] MEDS: *HR* Heparin 5,000 UNIT/ML VIAL SQ SCH ×3 (06:29→22:24)
[2022-03-22] MEDS: CeFAZolin 2,000 MG/120 ML BAG IVPB SCH ×3 (06:30→22:25)
[2022-03-22] MEDS: Fluconazole 100 MG TABLET PO SCH (07:57)
[2022-03-22] MEDS: amLODIPine 5 MG TABLET PO SCH (07:58)
[2022-03-22] MEDS: Magnesium Oxide 400 MG TABLET PO SCH (07:58)
[2022-03-22] MEDS: lisinopriL 20 MG TABLET PO SCH (07:58)
[2022-03-22] MEDS: Aspirin Enteric Coated 81 MG Tablet PO SCH (07:58)
[2022-03-22] MEDS: metroNIDAZOLE 500 MG TABLET PO SCH ×3 (07:58→22:24)
[2022-03-22] MEDS: hydroCHLOROthiazide 25 MG TABLET PO SCH (07:58)
[2022-03-22] MEDS: Insulin LISPRO 300 UNITS/3 ML VIAL SUBQ SCH ×3 (07:59→16:20)
[2022-03-22] MEDS ORDERED: Potassium Chloride Elixir 20 MEQ/15 ML UDC PO ONE (08:48)
[2022-03-22 12:05] LABS: Basophils # 0.1 K/mcL (0.0-0.2); Basophils % 0.5 %; Eosinophils # 0.1 K/mcL (0.0-0.6); Eosinophils % 0.8 %; Hematocrit 34.3 % (35.3-44.9); Immature Granulocytes % 2.6 % (0-4); Lymphocytes % 13.6 %; Mean Corpuscular HGB Conc 32.9 g/dL (31.6-35.5); Mean Corpuscular Hemoglobin 29.1 pg (28.0-33.3); Mean Corpuscular Volume 88.4 fL (83.0-100.0); Mean Platelet Volume 8.8 fL (9.4-12.4); Monocytes # 1.1 K/mcL (0.0-1.3); Monocytes % 7.6 %; Neutrophils # 11.1 K/mcL (1.6-8.9); Platelet Count 409 K/mcL (140-400); Red Blood Count 3.88 M/mcL (3.82-4.97); Red Cell Distribution Width 14.2 % (11.5-14.5); Segmented Neutrophils % 74.9 %; White Blood Count 14.9 K/mcL (4.3-11.1)
[2022-03-22 12:08] LABS: Hemoglobin 11.3 g/dL (11.5-15.4)
[2022-03-22] MEDS: *HR* OxyCODONE Oral Soln 5 MG/5 ML UD.LIQ PO PRN (18:54)
[2022-03-22] MEDS: Latanoprost 2.5 ML BOTTLE BOTH EYES SCH (23:48)
[2022-03-23] MEDS: CeFAZolin 2,000 MG/120 ML BAG IVPB SCH ×3 (04:30→21:12)
[2022-03-23] MEDS: *HR* Heparin 5,000 UNIT/ML VIAL SQ SCH ×2 (04:31→13:54)
[2022-03-23] MEDS: *HR* OxyCODONE Oral Soln 5 MG/5 ML UD.LIQ PO PRN ×2 (05:05→21:09)
[2022-03-23 05:30] LABS: Basophils # 0.1 K/mcL (0.0-0.2); Basophils % 0.4 %; Eosinophils # 0.2 K/mcL (0.0-0.6); Hematocrit 34.1 % (35.3-44.9); Hemoglobin 11.3 g/dL (11.5-15.4); Immature Granulocytes % 2.3 % (0-4); Lymphocytes # 2.1 K/mcL (0.6-4.6); Lymphocytes % 14.1 %; Mean Corpuscular HGB Conc 33.1 g/dL (31.6-35.5); Mean Corpuscular Hemoglobin 29.3 pg (28.0-33.3); Mean Corpuscular Volume 88.3 fL (83.0-100.0); Mean Platelet Volume 9.4 fL (9.4-12.4); Monocytes # 1.3 K/mcL (0.0-1.3); Monocytes % 8.5 %; Neutrophils # 11.1 K/mcL (1.6-8.9); Platelet Count 394 K/mcL (140-400); Red Blood Count 3.86 M/mcL (3.82-4.97); Red Cell Distribution Width 14.1 % (11.5-14.5); Segmented Neutrophils % 73.7 %
[2022-03-23 05:31] LABS: VBG Ionized Calcium 1.19 mmol/L (1.15-1.35)
[2022-03-23 05:50] LABS: Alanine Aminotransferase 6 Units/L (7-52); Albumin 2.7 g/dL (3.5-5.7); Albumin/Globulin Ratio 0.8 (1.1-2.2); Alkaline Phosphatase 80 Units/L (34-104); Aspartate Amino Transferase 14 Units/L (13-39); BUN/Creatinine Ratio 20 (6-26); Bilirubin,Direct 0.1 mg/dL (0.0-0.2); Bilirubin,Indirect 0.3 mg/dL (0.0-1.0); Bilirubin,Total 0.4 mg/dL (0.3-1.0); Blood Urea Nitrogen 12 mg/dL (8-23); Calcium 9.1 mg/dL (8.6-10.3); Carbon Dioxide 30 mEq/L (23-29); Chloride 96 mEq/L (98-107); Globulin 3.6 g/dL (2.4-3.5); Glucose 169 mg/dL (70-105); Magnesium 1.4 mg/dL (1.6-2.6); Osmolality,Calculated 278 (280-300); Phosphorous 2.8 mg/dL (2.7-4.5); Potassium 3.8 mEq/L (3.5-5.1); Sodium 132 mEq/L (136-145); Total Protein 6.3 g/dL (6.4-8.9); eGFR For African Americans > 60 (> 60); eGFR For Non-African Americans > 60 (> 60)
[2022-03-23] MEDS: Insulin LISPRO 300 UNITS/3 ML VIAL SUBQ SCH ×3 (08:29→16:57)
[2022-03-23] MEDS: Fluconazole 100 MG TABLET PO SCH (08:30)
[2022-03-23] MEDS: Magnesium Oxide 400 MG TABLET PO SCH (08:31)
[2022-03-23] MEDS: hydroCHLOROthiazide 25 MG TABLET PO SCH (08:31)
[2022-03-23] MEDS: lisinopriL 20 MG TABLET PO SCH (08:31)
[2022-03-23] MEDS ORDERED: Furosemide 20 MG/2 ML VIAL IVP ONE (08:32)
[2022-03-23] MEDS: amLODIPine 5 MG TABLET PO SCH (08:32)
[2022-03-23] MEDS: metroNIDAZOLE 500 MG TABLET PO SCH ×3 (08:32→21:09)
[2022-03-23] MEDS: Aspirin Enteric Coated 81 MG Tablet PO SCH (08:40)
[2022-03-23] MEDS: *HR* Enoxaparin 120 MG/0.8 ML SYRINGE SQ SCH (16:58)
[2022-03-23] MEDS: Latanoprost 2.5 ML BOTTLE BOTH EYES SCH (21:17)
[2022-03-24] MEDS ORDERED: hydrOXYzine pamoate 25 MG CAPSULE PO ONE (00:10)
[2022-03-24] MEDS: hydrALAZINE 10 MG TABLET PO PRN (02:03)
[2022-03-24] MEDS: *HR* OxyCODONE Oral Soln 5 MG/5 ML UD.LIQ PO PRN ×2 (03:20→22:33)
[2022-03-24] MEDS: CeFAZolin 2,000 MG/120 ML BAG IVPB SCH ×2 (05:49→13:06)
[2022-03-24 05:52] LABS: Basophils # 0.1 K/mcL (0.0-0.2); Basophils % 0.6 %; Eosinophils # 0.1 K/mcL (0.0-0.6); Eosinophils % 0.9 %; Hematocrit 33.5 % (35.3-44.9); Hemoglobin 11.3 g/dL (11.5-15.4); Immature Granulocytes % 1.4 % (0-4); Lymphocytes # 2.2 K/mcL (0.6-4.6); Lymphocytes % 17.5 %; Mean Corpuscular HGB Conc 33.7 g/dL (31.6-35.5); Mean Corpuscular Hemoglobin 29.7 pg (28.0-33.3); Mean Corpuscular Volume 88.2 fL (83.0-100.0); Mean Platelet Volume 8.7 fL (9.4-12.4); Monocytes # 1.5 K/mcL (0.0-1.3); Monocytes % 11.9 %; Neutrophils # 8.5 K/mcL (1.6-8.9); Platelet Count 399 K/mcL (140-400); Red Cell Distribution Width 13.9 % (11.5-14.5); Segmented Neutrophils % 67.7 %; White Blood Count 12.6 K/mcL (4.3-11.1)
[2022-03-24] MEDS: *HR* Enoxaparin 120 MG/0.8 ML SYRINGE SQ SCH ×2 (05:53→18:28)
[2022-03-24 05:54] LABS: VBG Ionized Calcium 1.14 mmol/L (1.15-1.35)
[2022-03-24 06:13] LABS: Alanine Aminotransferase 6 Units/L (7-52); Albumin 2.8 g/dL (3.5-5.7); Albumin/Globulin Ratio 0.8 (1.1-2.2); Alkaline Phosphatase 73 Units/L (34-104); Aspartate Amino Transferase 22 Units/L (13-39); BUN/Creatinine Ratio 20 (6-26); Bilirubin,Direct 0.1 mg/dL (0.0-0.2); Bilirubin,Indirect 0.4 mg/dL (0.0-1.0); Bilirubin,Total 0.5 mg/dL (0.3-1.0); Blood Urea Nitrogen 11 mg/dL (8-23); Calcium 9.2 mg/dL (8.6-10.3); Carbon Dioxide 33 mEq/L (23-29); Chloride 92 mEq/L (98-107); Globulin 3.5 g/dL (2.4-3.5); Glucose 173 mg/dL (70-105); Magnesium 1.4 mg/dL (1.6-2.6); Osmolality,Calculated 276 (280-300); Phosphorous 2.9 mg/dL (2.7-4.5); Potassium 3.6 mEq/L (3.5-5.1); Sodium 131 mEq/L (136-145); Total Protein 6.3 g/dL (6.4-8.9); eGFR For African Americans > 60 (> 60); eGFR For Non-African Americans > 60 (> 60)
[2022-03-24] MEDS: metroNIDAZOLE 500 MG TABLET PO SCH ×3 (09:27→20:15)
[2022-03-24] MEDS: hydroCHLOROthiazide 25 MG TABLET PO SCH (09:27)
[2022-03-24] MEDS: Aspirin Enteric Coated 81 MG Tablet PO SCH (09:27)
[2022-03-24] MEDS: Fluconazole 100 MG TABLET PO SCH (09:28)
[2022-03-24] MEDS: Magnesium Oxide 400 MG TABLET PO SCH (09:29)
[2022-03-24] MEDS: lisinopriL 20 MG TABLET PO SCH (09:29)
[2022-03-24] MEDS: amLODIPine 5 MG TABLET PO SCH (09:29)
[2022-03-24] MEDS: Insulin LISPRO 300 UNITS/3 ML VIAL SUBQ SCH ×3 (09:31→18:28)
[2022-03-24] MEDS ORDERED: Vancomycin 1,750 MG in 0.9 % Sodium Chloride 250 ML IVPB SCH (16:00)
[2022-03-24] MEDS: Vancomycin 1,250 MG/262.5 ML IV.SOLN IVPB SCH (18:40)
[2022-03-24] MEDS: Latanoprost 2.5 ML BOTTLE BOTH EYES SCH (20:15)
[2022-03-25] MEDS: Vancomycin 1,250 MG/262.5 ML IV.SOLN IVPB SCH ×2 (05:31→16:45)
[2022-03-25] MEDS: *HR* Enoxaparin 120 MG/0.8 ML SYRINGE SQ SCH (05:33)
[2022-03-25 05:47] LABS: Basophils # 0.1 K/mcL (0.0-0.2); Basophils % 0.6 %; Eosinophils # 0.1 K/mcL (0.0-0.6); Eosinophils % 1.4 %; Hematocrit 33.2 % (35.3-44.9); Hemoglobin 10.7 g/dL (11.5-15.4); Immature Granulocytes % 1.8 % (0-4); Lymphocytes # 2.3 K/mcL (0.6-4.6); Lymphocytes % 27.1 %; Mean Corpuscular HGB Conc 32.2 g/dL (31.6-35.5); Mean Corpuscular Hemoglobin 28.8 pg (28.0-33.3); Mean Corpuscular Volume 89.5 fL (83.0-100.0); Mean Platelet Volume 8.9 fL (9.4-12.4); Monocytes # 1.3 K/mcL (0.0-1.3); Monocytes % 15.3 %; Neutrophils # 4.6 K/mcL (1.6-8.9); Platelet Count 428 K/mcL (140-400); Red Blood Count 3.71 M/mcL (3.82-4.97); Red Cell Distribution Width 14.3 % (11.5-14.5); Segmented Neutrophils % 53.8 %; White Blood Count 8.6 K/mcL (4.3-11.1)
[2022-03-25 06:01] LABS: Alanine Aminotransferase 6 Units/L (7-52); Albumin 2.8 g/dL (3.5-5.7); Albumin/Globulin Ratio 0.8 (1.1-2.2); Alkaline Phosphatase 78 Units/L (34-104); Aspartate Amino Transferase 28 Units/L (13-39); BUN/Creatinine Ratio 17 (6-26); Bilirubin,Direct 0.1 mg/dL (0.0-0.2); Bilirubin,Indirect 0.4 mg/dL (0.0-1.0); Bilirubin,Total 0.5 mg/dL (0.3-1.0); Blood Urea Nitrogen 10 mg/dL (8-23); Calcium 9.3 mg/dL (8.6-10.3); Carbon Dioxide 34 mEq/L (23-29); Chloride 92 mEq/L (98-107); Globulin 3.5 g/dL (2.4-3.5); Glucose 157 mg/dL (70-105); Magnesium 1.6 mg/dL (1.6-2.6); Osmolality,Calculated 274 (280-300); Potassium 3.9 mEq/L (3.5-5.1); Sodium 131 mEq/L (136-145); Total Protein 6.3 g/dL (6.4-8.9); eGFR For African Americans > 60 (> 60); eGFR For Non-African Americans > 60 (> 60)
[2022-03-25] MEDS: Fluconazole 100 MG TABLET PO SCH (07:22)
[2022-03-25] MEDS: lisinopriL 20 MG TABLET PO SCH (07:22)
[2022-03-25] MEDS: Insulin LISPRO 300 UNITS/3 ML VIAL SUBQ SCH ×3 (07:23→16:45)
[2022-03-25] MEDS: Magnesium Oxide 400 MG TABLET PO SCH (07:23)
[2022-03-25] MEDS: metroNIDAZOLE 500 MG TABLET PO SCH ×3 (07:23→20:46)
[2022-03-25] MEDS: Aspirin Enteric Coated 81 MG Tablet PO SCH (07:23)
[2022-03-25] MEDS: hydroCHLOROthiazide 25 MG TABLET PO SCH (07:23)
[2022-03-25] MEDS: amLODIPine 5 MG TABLET PO SCH (07:23)
[2022-03-25] MEDS ORDERED: *HR* Rivaroxaban 15 MG TABLET PO SCH (12:00)
[2022-03-25] MEDS: Latanoprost 2.5 ML BOTTLE BOTH EYES SCH (20:47)
[2022-03-25] MEDS: *HR* OxyCODONE Oral Soln 5 MG/5 ML UD.LIQ PO PRN (21:15)
[2022-03-26] MEDS: hydrALAZINE 10 MG TABLET PO PRN (05:33)
[2022-03-26] MEDS: Vancomycin 1,250 MG/262.5 ML IV.SOLN IVPB SCH (05:35)
[2022-03-26 05:59] LABS: Hematocrit 34.5 % (35.3-44.9); Hemoglobin 11.2 g/dL (11.5-15.4); Mean Corpuscular HGB Conc 32.5 g/dL (31.6-35.5); Mean Corpuscular Hemoglobin 28.8 pg (28.0-33.3); Mean Corpuscular Volume 88.7 fL (83.0-100.0); Mean Platelet Volume 8.9 fL (9.4-12.4); Platelet Count 458 K/mcL (140-400); Red Blood Count 3.89 M/mcL (3.82-4.97)
[2022-03-26 06:06] LABS: BUN/Creatinine Ratio 15 (6-26); Blood Urea Nitrogen 8 mg/dL (8-23); Calcium 9.4 mg/dL (8.6-10.3); Carbon Dioxide 33 mEq/L (23-29); Chloride 91 mEq/L (98-107); Glucose 165 mg/dL (70-105); Osmolality,Calculated 272 (280-300); Sodium 130 mEq/L (136-145); eGFR For African Americans > 60 (> 60); eGFR For Non-African Americans > 60 (> 60)
[2022-03-26] MEDS: Fluconazole 100 MG TABLET PO SCH (07:53)
[2022-03-26] MEDS: metroNIDAZOLE 500 MG TABLET PO SCH ×2 (07:54→17:05)
[2022-03-26] MEDS: Aspirin Enteric Coated 81 MG Tablet PO SCH (07:54)
[2022-03-26] MEDS: hydroCHLOROthiazide 25 MG TABLET PO SCH (07:54)
[2022-03-26] MEDS: lisinopriL 20 MG TABLET PO SCH (07:54)
[2022-03-26] MEDS: Magnesium Oxide 400 MG TABLET PO SCH (07:54)
[2022-03-26] MEDS: *HR* Rivaroxaban 15 MG TABLET PO SCH ×2 (07:55→17:37)
[2022-03-26] MEDS: amLODIPine 5 MG TABLET PO SCH (07:55)
[2022-03-26] MEDS: Insulin LISPRO 300 UNITS/3 ML VIAL SUBQ SCH ×3 (11:17→17:43)
[2022-03-26 11:18] VITALS: TEMP 100; O2SAT 96
[2022-03-26] MEDS ORDERED: hydrALAZINE 10 MG TABLET PO PRN (11:55)
[2022-03-26] MEDS ORDERED: amLODIPine 5 MG TABLET PO ONE (14:17)
[2022-03-26 16:54] VITALS: BP 153/77; PULSE 95
[2022-03-26] MEDS ORDERED: Vancomycin 1,500 MG/265 ML IV.SOLN IVPB SCH (17:00)
[2022-03-26 19:19] LABS: Adenovirus Not Detected (Not Detect); Bordetella Pertussis Not Detected (Not Detect); Chlamydophila pneumoniae Not Detected (Not Detect); Coronavirus 229E Not Detected (Not Detect); Coronavirus HKU1 Not Detected (Not Detect); Coronavirus NL63 Not Detected (Not Detect); Coronavirus OC43 Not Detected (Not Detect); Human Metapneumovirus Not Detected (Not Detect); Human Rhinovirus/Enterovirus Not Detected (Not Detect); Influenza A Subtype 2009 H1 Not Detected (Not Detect); Influenza B Not Detected (Not Detect); Mycoplasma pneumoniae Not Detected (Not Detect); Parainfluenza Virus 1 Not Detected (Not Detect); Parainfluenza Virus 2 Not Detected (Not Detect); Parainfluenza Virus 3 Not Detected (Not Detect); Parainfluenza Virus 4 Not Detected (Not Detect); Respiratory Syncytial Virus Not Detected (Not Detect); SARS-CoV-2 Not Detected (Not Detect)
[2022-03-27] MEDS ORDERED: amLODIPine 5 MG TABLET PO SCH (09:00)
== END 2022-03-26 19:30 | disposition other institution (70) | DRG 871 ==
LOC: EMEROOARM 21:58 → 2ANU 21:58 → SUATTDRO 03-12 03:58 → 2ANU 03-12 04:37 → SUATTDRO 03-12 10:29 → ICNU 03-18 12:12 → 2NENU 03-20 18:27
PROVIDERS: ADMIT Internal Medicine; ATTEND Student in an Organized Health Care Education/Training Program
PROC: ENDOBRF (2022-03-18 12:45)

== ENCOUNTER 2022-03-31 21:06 | Inpatient (IN) ==
[2022-03-31] MEDS ORDERED: Naloxone 0.4 MG/ML INJ IVP PRN (21:33)
[2022-03-31] MEDS ORDERED: Ondansetron 4 MG/2 ML VIAL IVP PRN (21:33)
[2022-03-31] MEDS ORDERED: Acetaminophen 325 MG TABLET PO PRN (21:33)
[2022-03-31] MEDS ORDERED: *HR* Dextrose 50 % in Water (Syg) 50 ML SYRINGE IVP PRN (21:37)
[2022-03-31] MEDS ORDERED: D5% in Water 1,000 ML IVC PRN (21:37)
[2022-03-31] MEDS ORDERED: Dextrose Gel 15 GM/37.5 ML TUBE PO PRN ×2 (21:37)
[2022-03-31] MEDS ORDERED: *HR* OxyCODONE Oral Soln 5 MG/5 ML UD.LIQ PO PRN (23:12)
[2022-03-31] MEDS ORDERED: NON-FORMULARY MEDICATION 1 EACH EACH (Cefazolin 2,000 MG/120 ML Bag) IVPB SCH (23:15)
[2022-04-01] MEDS: CeFAZolin 2,000 MG/120 ML BAG IVPB SCH ×3 (00:30→17:28)
[2022-04-01 00:57] LABS: Bacteria,Urine Few per hpf (None-Few); Bilirubin,Urine Negative (Negative); Blood,Urine Negative (Negative); Clarity,Urine Clear (Clear); Color,Urine Light-Yellow (Yellow); Glucose,Urine (UA) 30 mg/dL (Normal); Ketones,Urine Negative (Negative); Leukocyte Esterase,Urine Negative (Negative); Nitrite,Urine Negative (Negative); Protein,Urine Negative (Neg-Trace); RBC,Urine 0-3 per hpf (0-3); Specific Gravity,Urine 1.008 (1.010-1.025); Squamous Epithelial Cell,Urine Few per hpf (None-Few); Urobilinogen,Urine Normal (Normal); WBC,Urine 0-3 per hpf (0-3)
[2022-04-01 06:07] LABS: Basophils % 0.7 %; Eosinophils # 0.3 K/mcL (0.0-0.6); Eosinophils % 5.1 %; Hematocrit 31.4 % (35.3-44.9); Hemoglobin 10.3 g/dL (11.5-15.4); Immature Granulocytes % 0.3 % (0-4); Lymphocytes % 34.2 %; Mean Corpuscular HGB Conc 32.8 g/dL (31.6-35.5); Mean Corpuscular Hemoglobin 29.3 pg (28.0-33.3); Mean Corpuscular Volume 89.5 fL (83.0-100.0); Mean Platelet Volume 9.1 fL (9.4-12.4); Monocytes # 0.8 K/mcL (0.0-1.3); Monocytes % 13.5 %; Neutrophils # 2.7 K/mcL (1.6-8.9); Platelet Count 338 K/mcL (140-400); Red Blood Count 3.51 M/mcL (3.82-4.97); Segmented Neutrophils % 46.2 %; White Blood Count 5.9 K/mcL (4.3-11.1)
[2022-04-01 06:14] LABS: INR 1.4; Prothrombin Time 15.7 Seconds (9.4-12.1)
[2022-04-01 07:04] LABS: BUN/Creatinine Ratio 15 (6-26); Blood Urea Nitrogen 8 mg/dL (8-23); Calcium 9.5 mg/dL (8.6-10.3); Carbon Dioxide 26 mEq/L (23-29); Chloride 100 mEq/L (98-107); Glucose 155 mg/dL (70-105); Magnesium 1.6 mg/dL (1.6-2.6); Osmolality,Calculated 281 (280-300); Phosphorous 3.8 mg/dL (2.7-4.5); Potassium 3.9 mEq/L (3.5-5.1); Sodium 135 mEq/L (136-145); Troponin I < 0.03 ng/mL (< 0.04); eGFR For African Americans > 60 (> 60); eGFR For Non-African Americans > 60 (> 60)
[2022-04-01] MEDS ORDERED: Insulin LISPRO 300 UNITS/3 ML VIAL SUBQ SCH (07:30)
[2022-04-01 08:46] LABS: C-Reactive Protein 31 mg/L (Less than 10)
[2022-04-01] MEDS: amLODIPine 5 MG TABLET PO SCH (08:57)
[2022-04-01] MEDS ORDERED: Dextrose Gel 15 GM/37.5 ML TUBE PO PRN ×2 (12:19)
[2022-04-01] MEDS ORDERED: *HR* Dextrose 50 % in Water (Syg) 50 ML SYRINGE IVP PRN (12:19)
[2022-04-01] MEDS ORDERED: D5% in Water 1,000 ML IVC PRN (12:19)
[2022-04-01] MEDS: Insulin LISPRO 300 UNITS/3 ML VIAL SUBQ SCH ×4 (13:06→21:38)
[2022-04-01] MEDS ORDERED: *HR* Heparin 5,000 UNIT/ML VIAL IVP ONE (17:26)
[2022-04-01] MEDS ORDERED: Heparin 25,000UNIT/250ML 1/2NS 25,000 UNIT/250 ML IV.SOLN IVC SCH (17:30)
[2022-04-01 18:23] LABS: Hemoglobin 10.7 g/dL (11.5-15.4); Mean Corpuscular HGB Conc 32.4 g/dL (31.6-35.5); Mean Corpuscular Volume 89.4 fL (83.0-100.0); Mean Platelet Volume 8.5 fL (9.4-12.4); Platelet Count 309 K/mcL (140-400); Red Blood Count 3.69 M/mcL (3.82-4.97); Red Cell Distribution Width 13.6 % (11.5-14.5); White Blood Count 5.9 K/mcL (4.3-11.1)
[2022-04-01 18:30] LABS: Heparin anti-factor XA UFH 0.3 IU/mL (0.30-0.70); INR 1.3; Prothrombin Time 14.2 Seconds (9.4-12.1)
[2022-04-01] MEDS: Heparin 25,000UNIT/250ML 1/2NS 25,000 UNIT/250 ML IV.SOLN IVC SCH (19:04)
[2022-04-02] MEDS: CeFAZolin 2,000 MG/120 ML BAG IVPB SCH ×3 (01:29→17:47)
[2022-04-02 01:55] LABS: Heparin anti-factor XA UFH 0.61 IU/mL (0.30-0.70)
[2022-04-02 02:07] LABS: Basophils # 0.1 K/mcL (0.0-0.2); Basophils % 0.9 %; Eosinophils # 0.3 K/mcL (0.0-0.6); Hematocrit 32.8 % (35.3-44.9); Hemoglobin 10.6 g/dL (11.5-15.4); Immature Granulocytes % 0.6 % (0-4); Lymphocytes # 2.4 K/mcL (0.6-4.6); Lymphocytes % 34.9 %; Mean Corpuscular HGB Conc 32.3 g/dL (31.6-35.5); Mean Corpuscular Hemoglobin 29.4 pg (28.0-33.3); Mean Corpuscular Volume 90.9 fL (83.0-100.0); Mean Platelet Volume 9.2 fL (9.4-12.4); Monocytes # 0.7 K/mcL (0.0-1.3); Monocytes % 10.9 %; Neutrophils # 3.3 K/mcL (1.6-8.9); Platelet Count 320 K/mcL (140-400); Red Blood Count 3.61 M/mcL (3.82-4.97); Red Cell Distribution Width 13.8 % (11.5-14.5); Segmented Neutrophils % 48.7 %; White Blood Count 6.8 K/mcL (4.3-11.1)
[2022-04-02 02:09] LABS: % Iron Saturation 18 % (15-50); Alanine Aminotransferase 9 Units/L (7-52); Albumin 2.8 g/dL (3.5-5.7); Albumin/Globulin Ratio 0.7 (1.1-2.2); Alkaline Phosphatase 77 Units/L (34-104); Aspartate Amino Transferase 17 Units/L (13-39); BUN/Creatinine Ratio 18 (6-26); Bilirubin,Direct 0.1 mg/dL (0.0-0.2); Bilirubin,Indirect 0.3 mg/dL (0.0-1.0); Bilirubin,Total 0.4 mg/dL (0.3-1.0); Blood Urea Nitrogen 10 mg/dL (8-23); Calcium 9.5 mg/dL (8.6-10.3); Carbon Dioxide 28 mEq/L (23-29); Chloride 98 mEq/L (98-107); Globulin 3.8 g/dL (2.4-3.5); Glucose 156 mg/dL (70-105); Iron 40 mcg/dL (50-170); Magnesium 1.6 mg/dL (1.6-2.6); Osmolality,Calculated 282 (280-300); Potassium 3.9 mEq/L (3.5-5.1); Sodium 135 mEq/L (136-145); Total Protein 6.6 g/dL (6.4-8.9); Transferrin 160 mg/dL (203-362); eGFR For African Americans > 60 (> 60); eGFR For Non-African Americans > 60 (> 60)
[2022-04-02 02:23] LABS: Ferritin 209 ng/mL (10-120)
[2022-04-02 02:28] LABS: Folate 5.7 ng/mL (3.0-16.0)
[2022-04-02] MEDS: amLODIPine 5 MG TABLET PO SCH (08:37)
[2022-04-02] MEDS: Insulin LISPRO 300 UNITS/3 ML VIAL SUBQ SCH ×4 (08:37→21:36)
[2022-04-02] MEDS: Heparin 25,000UNIT/250ML 1/2NS 25,000 UNIT/250 ML IV.SOLN IVC SCH (13:12)
[2022-04-02] MEDS: *HR* Heparin 5,000 UNIT/ML VIAL IVP PRN (17:47)
[2022-04-02] MEDS: Latanoprost 2.5 ML BOTTLE BOTH EYES SCH (21:15)
[2022-04-03] MEDS: CeFAZolin 2,000 MG/120 ML BAG IVPB SCH ×4 (00:23→23:21)
[2022-04-03 01:57] LABS: Basophils # 0.1 K/mcL (0.0-0.2); Basophils % 0.7 %; Eosinophils # 0.3 K/mcL (0.0-0.6); Eosinophils % 4.3 %; Hematocrit 31.9 % (35.3-44.9); Hemoglobin 10.5 g/dL (11.5-15.4); Immature Granulocytes % 0.6 % (0-4); Lymphocytes # 2.4 K/mcL (0.6-4.6); Lymphocytes % 34.2 %; Mean Corpuscular HGB Conc 32.9 g/dL (31.6-35.5); Mean Corpuscular Hemoglobin 29.6 pg (28.0-33.3); Mean Corpuscular Volume 89.9 fL (83.0-100.0); Mean Platelet Volume 8.6 fL (9.4-12.4); Monocytes # 0.8 K/mcL (0.0-1.3); Neutrophils # 3.4 K/mcL (1.6-8.9); Platelet Count 271 K/mcL (140-400); Red Blood Count 3.55 M/mcL (3.82-4.97); Red Cell Distribution Width 13.7 % (11.5-14.5); Segmented Neutrophils % 48.2 %
[2022-04-03 02:24] LABS: BUN/Creatinine Ratio 20 (6-26); Blood Urea Nitrogen 11 mg/dL (8-23); Calcium 9.6 mg/dL (8.6-10.3); Carbon Dioxide 28 mEq/L (23-29); Chloride 98 mEq/L (98-107); Glucose 130 mg/dL (70-105); Magnesium 1.6 mg/dL (1.6-2.6); Osmolality,Calculated 277 (280-300); Potassium 3.9 mEq/L (3.5-5.1); Sodium 133 mEq/L (136-145); eGFR For African Americans > 60 (> 60); eGFR For Non-African Americans > 60 (> 60)
[2022-04-03] MEDS: *HR* Heparin 5,000 UNIT/ML VIAL IVP PRN ×2 (02:37→16:33)
[2022-04-03] MEDS: Latanoprost 2.5 ML BOTTLE BOTH EYES SCH ×2 (07:49→21:13)
[2022-04-03] MEDS: amLODIPine 5 MG TABLET PO SCH (08:12)
[2022-04-03] MEDS: Insulin LISPRO 300 UNITS/3 ML VIAL SUBQ SCH ×4 (08:14→19:18)
[2022-04-03] MEDS: Heparin 25,000UNIT/250ML 1/2NS 25,000 UNIT/250 ML IV.SOLN IVC SCH (08:29)
[2022-04-03] MEDS: lisinopriL 20 MG TABLET PO SCH (15:48)
[2022-04-04 05:20] LABS: Basophils # 0.1 K/mcL (0.0-0.2); Basophils % 0.9 %; Eosinophils # 0.3 K/mcL (0.0-0.6); Eosinophils % 5.1 %; Hematocrit 33.5 % (35.3-44.9); Hemoglobin 10.7 g/dL (11.5-15.4); Immature Granulocytes % 0.3 % (0-4); Lymphocytes % 34.6 %; Mean Corpuscular HGB Conc 31.9 g/dL (31.6-35.5); Mean Corpuscular Hemoglobin 28.9 pg (28.0-33.3); Mean Corpuscular Volume 90.5 fL (83.0-100.0); Monocytes # 0.7 K/mcL (0.0-1.3); Monocytes % 12.4 %; Neutrophils # 2.7 K/mcL (1.6-8.9); Platelet Count 269 K/mcL (140-400); Red Cell Distribution Width 13.7 % (11.5-14.5); Segmented Neutrophils % 46.7 %; White Blood Count 5.7 K/mcL (4.3-11.1)
[2022-04-04 05:21] LABS: BUN/Creatinine Ratio 16 (6-26); Blood Urea Nitrogen 9 mg/dL (8-23); Calcium 9.5 mg/dL (8.6-10.3); Carbon Dioxide 29 mEq/L (23-29); Chloride 100 mEq/L (98-107); Glucose 157 mg/dL (70-105); Magnesium 1.6 mg/dL (1.6-2.6); Osmolality,Calculated 280 (280-300); Potassium 3.7 mEq/L (3.5-5.1); Sodium 134 mEq/L (136-145); eGFR For African Americans > 60 (> 60); eGFR For Non-African Americans > 60 (> 60)
[2022-04-04] MEDS ORDERED: Ondansetron 4 MG/2 ML VIAL ONE (07:05)
[2022-04-04] MEDS ORDERED: *HR* FentaNYL (PF) 100 MCG/2 ML VIAL ONE (07:05)
[2022-04-04] MEDS ORDERED: *HR* Midazolam HCl 2 MG/2 ML VIAL ONE (07:05)
[2022-04-04] MEDS ORDERED: *HR* Rocuronium Bromide 50 MG/5 ML VIAL ONE (07:05)
[2022-04-04] MEDS ORDERED: *HR* Succinylcholine 200 MG/10 ML VIAL IVP ONE (07:05)
[2022-04-04] MEDS ORDERED: *HR* Propofol 200 MG/20 ML VIAL IVP ONE (07:05)
[2022-04-04] MEDS ORDERED: Lidocaine -MPF 2% 5 ML VIAL ONE (07:05)
[2022-04-04] MEDS ORDERED: EPHEDrine 50 MG/ML VIAL ONE (07:06)
[2022-04-04] MEDS ORDERED: Bupivacaine/EPI 1:200k 0.25% 50 ML VIAL ONE (07:13)
[2022-04-04] MEDS ORDERED: Vancomycin 1,000 MG VIAL ONE (07:13)
[2022-04-04 08:14] LABS: INR 1.2; Prothrombin Time 13.2 Seconds (9.4-12.1)
[2022-04-04 08:17] LABS: Activated Partial Thrombo Time 28.4 Seconds (26.0-36.0)
[2022-04-04] MEDS: Insulin LISPRO 300 UNITS/3 ML VIAL SUBQ SCH ×4 (11:07→22:48)
[2022-04-04] MEDS: CeFAZolin 2,000 MG/120 ML BAG IVPB SCH ×2 (11:13→16:15)
[2022-04-04] MEDS: amLODIPine 5 MG TABLET PO SCH (11:17)
[2022-04-04] MEDS: lisinopriL 20 MG TABLET PO SCH (11:18)
[2022-04-04] MEDS: Heparin 25,000UNIT/250ML 1/2NS 25,000 UNIT/250 ML IV.SOLN IVC SCH (12:05)
[2022-04-04] MEDS: *HR* Heparin 5,000 UNIT/ML VIAL IVP PRN ×2 (12:12→18:59)
[2022-04-04] MEDS ORDERED: Sennosides 8.6 MG TABLET PO ONE (20:00)
[2022-04-04] MEDS: Latanoprost 2.5 ML BOTTLE BOTH EYES SCH (22:47)
[2022-04-05] MEDS: CeFAZolin 2,000 MG/120 ML BAG IVPB SCH ×3 (00:17→18:00)
[2022-04-05 01:12] LABS: Basophils % 0.4 %; Eosinophils % 0.3 %; Hematocrit 32.8 % (35.3-44.9); Hemoglobin 10.6 g/dL (11.5-15.4); Immature Granulocytes % 0.7 % (0-4); Lymphocytes # 2.3 K/mcL (0.6-4.6); Lymphocytes % 34.4 %; Mean Corpuscular HGB Conc 32.3 g/dL (31.6-35.5); Mean Corpuscular Hemoglobin 29.4 pg (28.0-33.3); Mean Corpuscular Volume 91.1 fL (83.0-100.0); Mean Platelet Volume 8.9 fL (9.4-12.4); Monocytes # 0.7 K/mcL (0.0-1.3); Neutrophils # 3.6 K/mcL (1.6-8.9); Platelet Count 268 K/mcL (140-400); Red Cell Distribution Width 13.5 % (11.5-14.5); Segmented Neutrophils % 54.2 %; White Blood Count 6.7 K/mcL (4.3-11.1)
[2022-04-05 01:31] LABS: BUN/Creatinine Ratio 22 (6-26); Blood Urea Nitrogen 14 mg/dL (8-23); Calcium 9.6 mg/dL (8.6-10.3); Carbon Dioxide 26 mEq/L (23-29); Chloride 101 mEq/L (98-107); Glucose 175 mg/dL (70-105); Magnesium 1.7 mg/dL (1.6-2.6); Osmolality,Calculated 285 (280-300); Sodium 135 mEq/L (136-145); eGFR For African Americans > 60 (> 60); eGFR For Non-African Americans > 60 (> 60)
[2022-04-05] MEDS: Heparin 25,000UNIT/250ML 1/2NS 25,000 UNIT/250 ML IV.SOLN IVC SCH ×2 (02:53→18:21)
[2022-04-05] MEDS: amLODIPine 5 MG TABLET PO SCH (09:31)
[2022-04-05] MEDS: lisinopriL 20 MG TABLET PO SCH (09:31)
[2022-04-05] MEDS: Insulin LISPRO 300 UNITS/3 ML VIAL SUBQ SCH ×4 (09:32→20:30)
[2022-04-05 20:18] VITALS: BP 126/57; PULSE 93; TEMP 98.2; O2SAT 93
[2022-04-05] MEDS: Latanoprost 2.5 ML BOTTLE BOTH EYES SCH (20:29)
== END 2022-04-05 23:55 | disposition short-term general hospital (02) | DRG 551 ==
LOC: 4WAOSI → SUATTDRO 21:33
PROVIDERS: ADMIT Internal Medicine; ATTEND Internal Medicine